=== PATIENT | male | born 1980 | race Two or more races ===

== ENCOUNTER 2021-08-24 02:47 | Emergency (ER) | payer BC, OTHER ==
[~2021-08-24] VITALS: Ht 172.7 cm; Wt 88.0 kg
[2021-08-24 05:57] VITALS: BP 140/84
[2021-08-24] MEDS ORDERED: IBUP800T27 PO (09:09)
[2021-08-24] MEDS ORDERED: CEPH-509 PO (09:09)
== END 2021-08-24 09:14 | disposition home or self-care (01) ==
LOC: ER 02:47
DX: L03.115 Cellulitis of right lower limb (principal)
CPT/HCPCS: 93971